=== PATIENT | male | born 1990 | race African-American/Black ===

== ENCOUNTER 2016-11-04 08:35 | Emergency (ER) | payer MEDICAID ==
[~2016-11-04] VITALS: Ht 182.9 cm; Wt 113.4 kg
[2016-11-04 08:51] VITALS: BP 135/71
== END 2016-11-04 09:12 | disposition home or self-care (01) ==
LOC: ER 08:35
DX: J02.9 Acute pharyngitis, unspecified (principal); N39.0 Urinary tract infection, site not specified; R51 Headache

== ENCOUNTER 2016-11-12 02:37 | Emergency (ER) | payer MEDICAID ==
[~2016-11-12] VITALS: Ht 182.9 cm; Wt 113.4 kg
[2016-11-12 06:10] LABS: Urine Bilirubin Negative (Negative); Urine Blood Negative /uL (Negative); Urine Color Yellow (Yellow); Urine Glucose Normal (Normal); Urine Ketone Negative (Negative); Urine Nitrite Negative (Negative); Urine RBC 1 /hpf (0 - 3); Urine Urobilinogen Normal (Negative)
[2016-11-12 07:29] VITALS: BP 114/91
== END 2016-11-12 07:46 | disposition home or self-care (01) ==
LOC: ER 02:38
DX: J02.9 Acute pharyngitis, unspecified (principal); R35.0 Frequency of micturition
CPT/HCPCS: 81001